=== PATIENT | female | born 1970 | race Caucasian/White ===

== ENCOUNTER → 2016-11-11 | Outpatient (CLI) | payer BC ==
[~2016-11-11] MED LIST: CIPR-255 PO; HYDR-5688 PO; THY/30 PO
== END | disposition home or self-care (01) ==
LOC: C.LAB 15:07
PROVIDERS: ATTEND Nurse Practitioner Family
DX: N39.0 Urinary tract infection, site not specified (principal)

== ENCOUNTER 2016-12-02 06:25 | Inpatient (IN) | payer BC ==
[2016-12-02] VITALS (9 sets, daily range): BP systolic 119–170; BP diastolic 69–100; PULSE 49–75; TEMP 36.4–36.8; O2SAT 92–99; Ht 175.3 cm; Wt 102.2 kg
[~2016-12-02] VITALS: Ht 175.3 cm; Wt 102.2 kg
[~2016-12-02 06:25] MED LIST changes: -CIPR-255 PO; -HYDR-5688 PO
[2016-12-02] MEDS ORDERED: SODIUM CHLORIDE 0.9% 1000ML 500 ML IV STA (06:41)
[2016-12-02] MEDS ORDERED: ASPIRIN 81 MG CHEW PO STA (06:45)
[2016-12-02] MEDS ORDERED: ONDANSETRON INJ 2 MG/ML 2 ML VIAL IV STA (06:45)
[2016-12-02] MEDS ORDERED: MoRPHine SULFATE 4 MG/ML 1 ML CARP\\VIAL IV STA (06:46)
[2016-12-02] MEDS ORDERED: NiCARDipine HCL INJ 2.5 MG/ML 10 ML AMP ONE (06:47)
[2016-12-02] MEDS ORDERED: HEPARIN SOD (PORCINE) 1000 UNIT/ML 10 ML VIAL ONE (06:47)
[2016-12-02] MEDS ORDERED: FENTANYL CITRATE INJ 50 MCG/1 ML 2 ML VIAL ONE ×3 (06:47→13:02)
[2016-12-02] MEDS ORDERED: MIDAZOLAM HCL 1 MG/ML 2ML VIAL ONE ×2 (06:48→13:01)
[2016-12-02] MEDS: NITROGLYCERIN 0.4 MG SL PER TAB CHARGE SL PRN ×2 (06:50→07:02)
--- NOTE | 2016-12-02 06:50 | EMERGENCY ROOM VISIT NOTE ---
History Report prepared by Leonel: Kenia Nance Under the Supervision of: Dr. Marc Gomes M.D. First contact with patient: 06:36 Chief Complaint: CHEST PAIN Stated Complaint: CHEST PAIN History of Present Illness The patient is a 46 year old female who presents to the Emergency Room with complaints of persistent central chest pain that began around 0200 this morning. She currently rates her discomfort as a 9/10 in severity. The patient states that recently when she wakes up in the morning she would notice intermittent chest pain that would last 3-5 hours. She states that she thought that it was heart burn. The patient states that she has been taking antacids to alleviate her discomfort. She states her chest pain has been present since 0200 and notes that it is much worse than before. The patient states that nothing has been making it better this morning. She denies her pain being exertional. The patient states that with her pain today she has been experiencing diaphoresis and nausea. She states that she did vomit this morning. The patient additionally reports upper abdominal pain. The patient states that she is a smoker. She denies any pain radiating into her shoulder. The patient denies any history of lung or heart diseases. She states that she had a normal stress test 2-3 years ago. Source of History: patient Onset: 0200 this morning Position: chest (persistent) Symptom Intensity: 9/10 Timing: other (persistent) Associated Symptoms: + diaphoresis, + nausea, + vomiting, + abdominal pain Review of Systems See HPI for pertinent positives & negatives. A total of 10 systems reviewed and were otherwise negative. Past Medical & Surgical Medical Problems: (1) Hydronephrosis (2) Hypothyroidism Nos (3) Thyroid Dysfunc-Deliver (4) Urin Tract Infection Nos Family History FHx: heart disease Social History Smoking Status: Current Every Day Smoker Alcohol Use: occasionally Marital Status: Housing Status: lives with family Current/Historical Medications Scheduled Ciprofloxacin Hcl (Cipro), 1 TAB PO BID Thyroid ([place] Thyroid), 60 MG PO BID Scheduled PRN Hydrocodone/Acetaminophen 5MG/325MG ([place] 5MG/325MG), 1-2 TABLET PO q 6 hrs PRN for Pain Allergies Coded Allergies: Adhesives (Verified Allergy, Intermediate, took off skin, 12/02/16) Latex1 -Allergic Contact Dermititis (Verified Allergy, Unknown, "takes skin off", 12/02/16) Physical Exam Vital Signs Date Time Temp Pulse Resp B/P (MAP) Pulse Ox O2 Delivery O2 Flow Rate FiO2 12/02/16 09:00 84 16 174/82 98 Room Air 12/02/16 08:21 49 18 178/67 99 Room Air 12/02/16 07:42 46 16 151/70 96 12/02/16 07:41 46 15 96 12/02/16 07:36 49 18 129/70 98 12/02/16 07:31 59 14 127/66 12/02/16 07:26 47 16 149/62 100 12/02/16 07:21 153/62 12/02/16 07:18 46 14 99 12/02/16 07:16 159/77 12/02/16 07:13 48 17 158/76 99 Room Air 12/02/16 07:13 51 15 99 12/02/16 07:06 52 16 135/81 100 12/02/16 07:01 50 21 173/81 100 12/02/16 06:55 51 19 160/79 100 12/02/16 06:52 58 16 157/85 100 Room Air 12/02/16 06:48 50 12/02/16 06:46 77 16 173/113 12/02/16 06:40 100 Room Air 12/02/16 06:40 100 Room Air 12/02/16 06:27 36.5 53 24 176/91 100 Room Air Physical Exam GENERAL: Patient is in moderate distress secondary to pain. HEENT: No acute trauma, normocephalic atraumatic, mucous membranes moist, no nasal congestion, no scleral icterus. NECK: No stridor, no adenopathy, no meningismus, trachea is midline. LUNGS: Clear to auscultation bilaterally, no wheeze, no rhonchi, breath sounds equal. HEART: Bradycardic with a regular rhythm, no murmurs. ABDOMEN: Soft, tender in both upper quadrants mostly the RUQ, bowel sounds positive, no hernias, no peritonitis. EXTREMITIES: No cyanosis or edema, full range of motion of all the joints without pain or difficulty, no signs for acute trauma. NEUROLOGIC: Oriented x 3, no acute motor or sensory deficits, no focal weakness. SKIN: No rash, no jaundice, no diaphoresis. Medical Decision & Procedures ER Provider Diagnostic Interpretation: Radiology results as stated below per my review and radiologist interpretation: CHEST ONE VIEW PORTABLE HISTORY: Atypical CHEST PAIN COMPARISON: Chest 07/09/2014. FINDINGS: The lungs are clear. Cardiac silhouette is normal in size. No pleural effusions. No pneumothorax. IMPRESSION: No acute process. Electronically signed by: Dav Soliz M.D. 12/02/2016 7:16 AM Dictated Date/Time: 12/02/2016 7:16 AM ABDOMINAL ULTRASOUND, RIGHT UPPER QUADRANT HISTORY: Right upper quadrant pain and vomiting. COMPARISON: None. FINDINGS: Liver morphology is normal. Hepatic echogenicity is mildly increased. No hepatic lesions are identified. The common bile duct measures 6 mm in caliber. Note is made of a nonmobile stone within the gallbladder neck which measures approximately 1.6 cm. The gallbladder is mildly distended. There is trace pericholecystic fluid and a sonographic Schreiber sign was reported by the technologist. Mild gallbladder wall thickening is noted. The wall measures 4 mm in thickness. The pancreatic body is normal. The head and tail are obscured by overlying bowel gas. There is no right hydronephrosis. IMPRESSION: 1. Cholelithiasis, mild gallbladder wall thickening, trace pericholecystic fluid and sonographic Schreiber sign. The findings suggest acute cholecystitis. 2. No biliary ductal dilatation. 3. Suspected fatty infiltration of the liver. Electronically signed by: Gentry Ruiz M.D. 12/02/2016 8:55 AM Dictated Date/Time: 12/02/2016 8:52 AM Laboratory Results 12/02/16 06:32 12/02/16 06:32 Test 12/02/16 06:32 12/02/16 06:45 12/02/16 06:49 Red Blood Count 4.86 M/uL (4.2-5.4) Mean Corpuscular Volume 91.2 fL (80-100) Mean Corpuscular Hemoglobin 32.1 pg (25-34) Mean Corpuscular Hemoglobin Concent 35.2 g/dl (32-36) RDW Standard Deviation 41.0 fL (36.4-46.3) RDW Coefficient of Variation 12.3 % (11.5-14.5) Mean Platelet Volume 10.5 fL (7.4-10.4) Prothrombin Time 9.7 SECONDS (9.0-12.0) Prothromb Time International Ratio 0.9 (0.9-1.1) Activated Partial Thromboplast Time 26.1 SECONDS (21.0-31.0) Partial Thromboplastin Ratio 1.0 Est Creatinine Clear Calc Drug Dose 116.2 ml/min Estimated GFR () 107.3 Estimated GFR (Non- 92.6 BUN/Creatinine Ratio 21.0 (10-20) Calcium Level 9.6 mg/dl (8.5-10.1) Total Bilirubin 0.5 mg/dl (0.2-1) Aspartate Amino Transf (AST/SGOT) 22 U/L (15-37) Alanine Aminotransferase (ALT/SGPT) 47 U/L (12-78) Alkaline Phosphatase 85 U/L (45-117) Total Creatine Kinase 59 U/L (26-192) Creatine Kinase MB 0.8 ng/ml (0.5-3.6) Creatine Kinase MB Ratio 1.4 (0-3.0) Total Protein 8.2 gm/dl (6.4-8.2) Albumin 4.1 gm/dl (3.4-5.0) Globulin 4.1 gm/dl (2.5-4.0) Albumin/Globulin Ratio 1.0 (0.9-2) Lipase 130 U/L (73-393) Bedside Troponin I < 0.030 ng/ml (0-0.045) Bedside Hemoglobin 14.6 g/dl (12.0-16.0) Bedside Hematocrit 43 % (37-47) Bedside Sodium 136 mEq/L (135-144) Bedside Potassium 6.6 mEq/L (3.3-5.0) Bedside Chloride 106 mEq/L (101-112) Bedside Total CO2 26 mEq/l (24-31) Anion Gap 12.0 mmol/L (16-25) Bedside Blood Urea Nitrogen 24 mg/dl (7-18) Bedside Creatinine 0.7 mg/dl (0.6-1.3) Bedside Glucose (other) 132 mg/dl (70-99) Bedside Ionized Calcium ([place]) 0.97 mmol/l (1.12-1.32) Laboratory results reviewed by me. Medications Administered Medications (Trade) Dose Ordered Sig/Vidhya Route Start Time Stop Time Status Last Admin Dose Admin Sodium Chloride 500 ml @ 999 mls/hr Q31M STAT IV 12/02/16 06:41 12/02/16 07:11 DC 12/02/16 06:52 999 MLS/HR Nitroglycerin (Nitrostat Tab) 0.4 mg Q5M PRN SL 12/02/16 06:45 12/02/16 12:10 DC 12/02/16 07:02 0.4 MG Aspirin (Aspirin Chew) 324 mg NOW STAT PO 12/02/16 06:45 12/02/16 06:46 DC 12/02/16 06:54 324 MG Ondansetron HCl (Zofran Inj) 4 mg NOW STAT IV 12/02/16 06:45 12/02/16 06:46 DC 12/02/16 06:54 4 MG Morphine Sulfate (MoRPHine SULFATE INJ) 4 mg NOW STAT IV 12/02/16 06:46 12/02/16 06:47 DC 12/02/16 06:53 4 MG Miscellaneous Information (Nursing Verbal Med Order) 1 ea ONE ONCE N/A 12/02/16 07:15 12/02/16 07:16 DC 12/02/16 07:13 1 EA Morphine Sulfate (MoRPHine SULFATE INJ) 4 mg Q15M PRN IV 12/02/16 07:30 12/02/16 12:11 DC 12/02/16 10:55 4 MG Miscellaneous Information (Nursing Verbal Med Order) 1 ea ONE ONCE N/A 12/02/16 07:30 12/02/16 07:31 DC 12/02/16 07:28 1 EA Piperacillin Sod/ Tazobactam Sod (Zosyn Iv) 4.5 gm NOW STAT IV 12/02/16 09:00 12/02/16 09:01 DC 12/02/16 09:27 4.5 GM ECG Indication: chest pain Rate (beats per minute): 50 Rhythm: sinus bradycardia Findings: ST elevation (Anterior), no ectopy Comparison ECG Date: 07/09/2014 Change: When compared to EKG done on 07/09/14, Anterior ST elevations are new. Repeat EKG shows sinus bradycardia 50, ST elevations in anterior leads have resolved, no ectopy. ED Course 0639: The patient was evaluated in room B12B. A complete history and physical exam was performed. 0641: Ordered Sodium Chloride 500 ml @ 999 mls/hr IV. 0643: A code heart alert was initiated. 0645: Ordered Zofran Inj 4 mg IV, Aspirin 324 mg PO, Nitroglycerin 0.4 mg SL. 0646: Ordered Morphine Sulfate 4 mg IV. 0650: I reevaluated the patient and she is resting. 0657: Nursing staff for the cardiac catheterization lab have arrived at the patients bedside. 0700: I reevaluated the patient and the patient states that she feels somewhat better, but still reports pain. 0702: Dr. Hartman, Interventional Cardiology arrived at the patient's bedside. I updated him on the patient's case. 0710: I spoke to Dr. Hartman and he would like the patient to have an echocardiogram in the department and if there are no changes, he does not want to take the patient to [facility] immediately. 0720: Per Dr. Hartman, the patients echo appeared normal. 0724: Dr. Hartman notes that the leads were placed improperly, which could account for the abnormal ST elevations. 0726: I reevaluated the patient and she is feeling improved. The patient notes that the morphine was most helpful. 0730: Ordered Morphine Sulfate 4 mg IV. 0900: Ordered Zosyn IV 4.5 gm IV. 0903: I reevaluated the patient and she is resting comfortably. I discussed the exam findings with her and I discussed the treatment plan. She verbalized complete understanding and agreement. She is going to be evaluated for further treatment. 0904: I discussed the patients case with Dr. Gutiérrez, General Surgery. He is going to come down to see the patient. Medical Decision The patient is a 46 year old female who presents to the ED with complaints of chest pain. Differential diagnoses considered include VT, angina, aortic dissection, PE, gastritis, pancreatitis, gallbladder disease, anemia, electrolyte imbalance, musculoskeletal pain. There is a mild leukocytosis, this could be consistent with infection or her pain. No concerning anemia. No significant electrolyte abnormality-her initial rapid potassium value was elevated but I believe likely hemolyzed as the redraw showed a normal value. No kidney failure, hepatitis or pancreatitis. EKG initially showed a sinus bradycardia with ST elevation in the anterior leads. This was concerning for acute cardiac ischemia. Cardiac enzyme testing times one did not suggest acute cardiac injury. Chest film showed no mediastinal widening, pneumonia or pneumothorax. There was no coagulopathy. The patient received oral aspirin. She was given sublingual nitros with minimal relief of pain. She received IV Zofran nausea, IV morphine for pain. She was given IV saline. Given the EKG findings and her complaints, a heart alert was called. She was seen by cardiology and it was felt that this was likely a non-cardiac presentation. A repeat EKG was done during her stay and the ST elevations had normalized. The patient was sent for a gallbladder ultrasound, this showed acute cholecystitis. She was given IV Zosyn as antibiotic coverage. I did speak with the on-call surgeon. The patient was evaluated. She does require a hospital stay and gallbladder surgery. It appears her presentation today is consistent with acute cholecystitis, not acute cardiac ischemia. The patient is feeling improved since her treatment here in the emergency room. Medication Reconcilliation Current Medication List: was personally reviewed by me Consults Time Called: 901 Consulting Physician: Dr. Gutiérrez, General Surgery Returned Call: 903 I discussed the patients case with Dr. Gutiérrez, General Surgery. He is going to come down to see the patient. Impression Primary Impression: Acute cholecystitis Additional Impressions: Precordial chest pain Abnormal EKG Critical Care I have personally spent greater than 36 minutes of critical care time in the direct management of this patient. This includes bedside care, interpretation of diagnostic studies, and testing, discussion with consultants, patient, and family members, and other required patient management activities. This 36 minutes is in excess of all separately billable procedures. Scribe Attestation The scribe's documentation has been prepared under my direction and personally reviewed by me in its entirety. I confirm that the note above accurately reflects all work, treatment, procedures, and medical decision making performed by me. Departure Information Dispostion Being Evaluated By Surgeon Prescriptions Ciprofloxacin Hcl (CIPRO) 500 Mg Tab 1 TAB PO BID for 7 Days, #14 TAB Prov: Corey Gutiérrez M.D. 12/02/16 Hydrocodone/Acetaminophen 5MG/325MG ([place] 5MG/325MG) Tab 1-2 TABLET PO q 6 hrs Y for Pain, #40 TAB PRN PAIN Prov: Corey Gutiérrez M.D. 12/02/16 Referrals Javon Lunsford M.D. (PCP) Problem Qualifiers
[2016-12-02] MEDS ORDERED: NITROGLYCERIN/D5W 100MCG/ML 20ML SYR ONE (06:51)
[2016-12-02 06:54] LABS: HEMATOCRIT 44.3 % (37-47); MEAN CELL VOLUME 91.2 fL (80-100); MEAN CORPUSCULAR HEMOGLOBIN 32.1 pg (25-34); MEAN CORPUSCULAR HGB CONC 35.2 g/dl (32-36); MEAN PLATELET VOLUME 10.5 fL (7.4-10.4); PLATELET COUNT 267 K/uL (130-400); RED BLOOD COUNT 4.86 M/uL (4.2-5.4); WHITE BLOOD COUNT 13.03 K/uL (4.8-10.8)
[2016-12-02 07:02] LABS: ISTAT CREATININE 0.7 mg/dl (0.6-1.3); ISTAT HEMOGLOBIN 14.6 g/dl (12.0-16.0); ISTAT IONIZED CALCIUM 0.97 mmol/l (1.12-1.32)
[2016-12-02 07:06] LABS: INR 0.9 (0.9-1.1); PROTHROMBIN TIME (PATIENT) 9.7 SECONDS (9.0-12.0)
[2016-12-02 07:11] LABS: CALCIUM 9.6 mg/dl (8.5-10.1); CREATININE 0.77 mg/dl (0.60-1.20); POTASSIUM 3.7 mmol/L (3.5-5.1)
[2016-12-02] MEDS ORDERED: NURSING VERBAL MED ORDER ONE ×2 (07:15→07:30)
[2016-12-02 07:16] LABS: CKMB/CK RATIO 1.4 (0-3.0)
--- NOTE | 2016-12-02 07:17 | DIAGNOSTIC IMAGING REPORT ---
CHEST ONE VIEW PORTABLE HISTORY: Atypical CHEST PAIN COMPARISON: Chest 07/09/2014. FINDINGS: The lungs are clear. Cardiac silhouette is normal in size. No pleural effusions. No pneumothorax. IMPRESSION: No acute process. Electronically signed by: Dav Soliz M.D. 12/02/2016 7:16 AM Dictated Date/Time: 12/02/2016 7:16 AM
[2016-12-02] MEDS: MoRPHine SULFATE 4 MG/ML 1 ML CARP\\VIAL IV PRN ×3 (07:47→10:55)
--- NOTE | 2016-12-02 08:52 | CARDIOLOGY CONSULTATION ---
DATE OF CONSULTATION: 12/02/2016 REFERRING PHYSICIAN: Marc Gomes MD CONSULTATION: Joshua Hartman Jr, MD PRIMARY PHYSICIAN: Javon Lunsford MD HISTORY OF PRESENT ILLNESS: The patient is a 46-year-old white female. No history of heart disease. No history of hypertension, diabetes mellitus, or dyslipidemia. She does smoke cigarettes. Family history of premature coronary artery disease in her father. Several days ago, she had an episode of sharp epigastric upper abdominal pain that lasted a few hours. She thought it was reflux. She has a history of GE reflux. There is no exertional component to it. It subsequently resolved. She presented to the Emergency Department this morning with a 4-5 hour complaint of constant sharp epigastric and right upper quadrant pain. Worse with deep inspiration. No increase in the intensity with exertion. The discomfort did radiate into her mid scapular region. She had nausea and vomiting prior to arrival to the Emergency Department. She also complains of dyspnea and some mild diaphoresis. In the Emergency Department, she was given sublingual nitroglycerin. This had no effect on the pain. She has received 3 doses of intravenous morphine 4 mg. This has decreased the intensity of pain. However, it still persists. She denies any fevers or chills. The patient states that she has had similar type discomfort, but not as intense in the past. She thinks there may be association with it occurring after meals. She denies any exertionally precipitated chest pain. Recently, she has had normal exercise tolerance. With strenuous activity, she has no anginal type symptoms. On arrival to the Emergency Department, she had an electrocardiogram performed. This revealed sinus bradycardia at a rate of 50 beats per minute. There were ST segment elevations noted in V1-V3. A repeat electrocardiogram was performed approximately 30 minutes later and no ST segment elevations were noted. Based on initial electrocardiogram and the complaints of chest pain, a heart alert was called. I evaluated the patient in the Emergency Department. The above history obtained. She was found on exam by Emergency Department physician to have epigastric and right upper quadrant tenderness. At the time of my exam, she had similar tenderness. A point of care troponin I returned at normal value of less than 0.030. Her total bilirubin is 0.5. AST and ALT are normal. Alkaline phosphatase was normal. CK total was 59 with an MB of 0.8. A bedside emergency echocardiogram was performed. This was reviewed by me at the bedside. It shows normal LV systolic function and wall motion. There is trace to mild tricuspid regurgitation. No evidence of valvular stenosis. No pericardial effusion. Normal estimated central venous pressure based on the appearance of the inferior vena cava. Because of the negative troponin I, normal LV wall motion, and resolution of ST changes on electrocardiogram with repositioning of the ECG leads, it was felt that the patient was not likely experiencing any acute coronary syndrome. It is felt that the patient may be experiencing an acute GI issue such as acute cholecystitis. The patient states that the discomfort was similar, but much less intense than her prior episodes of GE reflux. At home, she had used antacids. These had minimal effect on alleviating the pain. PAST MEDICAL HISTORY: 1. Hypothyroidism. 2. History of hydronephrosis. PAST SURGICAL HISTORY: 1. Status post hysterectomy. Ovaries in place. 2. Status post abdominoplasty surgery. MEDICATIONS AT TIME OF ADMISSION: Included [place] Thyroid 60 mg b.i.d. She also uses [id number] antacids. ALLERGIES: No known drug allergies. FAMILY HISTORY: History of coronary artery disease in her father. He from myocardial infarction in his mid 50s. Her mother is alive and well. She is actually in attendance with her in the Emergency Department. She has no history of heart disease. SOCIAL HISTORY: The patient is . She smokes cigarettes. Currently, smoking 6-7 cigarettes a day. Occasional use of alcohol. She has 3 sons. Age ranges 14-24. REVIEW OF SYSTEMS: 1. As above. 2. No orthopnea or PND. 3. No urinary complaints. 4. No pulmonary complaints other than current complaint of inability to take a deep breath secondary to exacerbating her abdominal epigastric pain. 5. No cerebrovascular or peripheral vascular complaints. 6. No HEENT complaints. PHYSICAL EXAMINATION: GENERAL: The patient is lying in bed. She appears to be in moderate distress secondary to pain. VITAL SIGNS: With pulse 46, blood pressure 151/70, and pulse oximetry 96%. Oral temperature was 36.5. HEAD: Normal. EYES: Pupils equal and round. Anicteric. Conjunctivae normal. NECK: No jugular venous distension. Carotids 2/2 bilaterally. Normal upstroke. No bruits. LUNGS: Normal respiratory effort. Clear. No rales or wheezes. HEART: Regular rhythm. Decreased rate. S1 and S2 normal. No S3 or S4. No murmur or rub. ABDOMEN: Marked epigastric and right upper quadrant tenderness. This exacerbates her pain in these areas. No bruits. Normal bowel sounds. No palpable masses or organomegaly. EXTREMITIES: No pretibial edema. No cyanosis or clubbing. PULSES: Distal pulses strongly palpable. NEUROLOGICAL: Alert and oriented x3. Motor grossly intact. PSYCHIATRIC: Affect is normal. DATA: Initial electrocardiogram performed at 06:31 a.m. today with sinus bradycardia at a rate of [address] elevations in V1-V3. Repeat electrocardiogram with resolution of the ST segment elevations. Chest x-ray reviewed by me. No evidence of congestive heart failure. No infiltrate. Normal heart size. Echocardiogram performed at the bedside and reviewed by me shows normal chamber dimensions. Normal biventricular systolic function. Normal left ventricular wall motion and ejection fraction. Trace to mild tricuspid regurgitation. Normal estimated central venous pressure. LABORATORY DATA: Sodium 140, potassium 3.7, chloride 105, carbon dioxide 25, BUN 16, creatinine 0.77 and random glucose 129. AST 22 and ALT 47. Total bilirubin 0.5. CK total 59 with MB of 0.8. Troponin I less than 0.030. Albumin 4.1. INR 0.9. PTT 26.1. CBC with WBC 13.03, hemoglobin 15.6, hematocrit 44.3, and platelet count 267. ASSESSMENT: 1. Prolonged epigastric and right upper quadrant pain. Initial troponin I negative. If the discomfort was secondary to myocardial ischemia/injury, would expect elevation in troponin I by now. Her echocardiogram performed during the complaint of severe pain shows normal LV wall motion. This would also go against any significant myocardial ischemia or injury. Initial electrocardiogram was abnormal. However, there was a report that the leads may have been in properly placed. A repeat electrocardiogram with proper lead placement showed resolution of the ST segment elevations. The patient does have coronary artery disease risk factors including cigarette smoking and family history of premature coronary artery disease. However, prior to admission, no exertionally precipitated symptoms suggestive of angina. 2. Elevated white blood count. This could be secondary to an underlying infectious process such as acute cholecystitis. However, she is afebrile. The white blood cell count elevation could be secondary to acute stress. 3. Sinus bradycardia. This may be secondary to increased vagal tone secondary to her pain. Her blood pressure is good. On exam and echocardiogram, she appears to be euvolemic. Her IVC on echo indicates normal central venous pressure. 4. No evidence of heart failure on chest x-ray or exam. RECOMMENDATIONS: 1. The patient was given morphine for pain relief. Analgesics as necessary. 2. Assess for a GI etiology to her symptoms. She has been ordered to undergo an abdominal ultrasound. 3. At this time, no further cardiac workup or evaluation. 4. In the event that the patient required urgent or emergent GI surgery, she is at an acceptable cardiac risk. As stated above, I do not feel that she is having an acute coronary process at this time. 5. Intravenous fluids. 6. No specific treatment for her bradycardia at this time. Her blood pressure is good. Certainly if she had hypotension and bradycardia, atropine and boluses of IV fluids would be indicated. Thank you for asking me to see this patient in cardiology consultation. The above assessment was discussed with Dr. Gomes, the ED nursing staff, and the patient by me.
--- NOTE | 2016-12-02 08:56 | DIAGNOSTIC IMAGING REPORT ---
ABDOMINAL ULTRASOUND, RIGHT UPPER QUADRANT HISTORY: Right upper quadrant pain and vomiting. COMPARISON: None. FINDINGS: Liver morphology is normal. Hepatic echogenicity is mildly increased. No hepatic lesions are identified. The common bile duct measures 6 mm in caliber. Note is made of a nonmobile stone within the gallbladder neck which measures approximately 1.6 cm. The gallbladder is mildly distended. There is trace pericholecystic fluid and a sonographic Schreiber sign was reported by the technologist. Mild gallbladder wall thickening is noted. The wall measures 4 mm in thickness. The pancreatic body is normal. The head and tail are obscured by overlying bowel gas. There is no right hydronephrosis. IMPRESSION: 1. Cholelithiasis, mild gallbladder wall thickening, trace pericholecystic fluid and sonographic Schreiber sign. The findings suggest acute cholecystitis. 2. No biliary ductal dilatation. 3. Suspected fatty infiltration of the liver. Electronically signed by: Gentry Ruiz M.D. 12/02/2016 8:55 AM Dictated Date/Time: 12/02/2016 8:52 AM
[2016-12-02] MEDS ORDERED: PIPERACILLIN/TAZOBACTAM 4.5 GM/100ML D5W IV STA (09:00)
--- NOTE | 2016-12-02 09:32 | History and Physical ---
History & Physical Date Dec 02, 2016. Chief Complaint chest/abd pain History of Present Illness The patient is a 46 year old female with complaints of chest and abd pain- initiall r/o for cardiac event by Dr Hartman. Then found with evidence of acute cholecystitis and stone in neck of gallbladder.- for lap zach Past Medical/Surgical History Medical Problems: (1) Hydronephrosis (2) Hypothyroidism Nos (3) Thyroid Dysfunc-Deliver (4) Urin Tract Infection Nos Additional History Hepatic Disease: No Endocrine Disorder: No Kidney Disease: No Hypertension: No Heart Disease: No Allergies Coded Allergies: Adhesives (Verified Allergy, Intermediate, took off skin, 12/02/16) Home Medications Scheduled Thyroid ([place] Thyroid), 60 MG PO BID Physical Examination Skin: warm/dry Eyes: sclerae normal Head: atraumatic Neck: supple Respiratory/Chest: no respiratory distress Cardiovascular: regular rate, rhythm Abdomen / GI: + pertinent finding (RUQ tenderness) Neurologic/Psych: alert Diagnosis acute cholecystitis Plan of Treatment for lap zach today. admit, IV atbx, medical follow postop.
[2016-12-02] MEDS ORDERED: HYDROmorphone INJ 1 MG/ML SYR IV PRN ×2 (09:45→13:00)
[2016-12-02] MEDS ORDERED: LACTATED RINGER'S 1000ML 1,000 ML IV SCH (09:45)
[2016-12-02] MEDS ORDERED: PROMETHAZINE HCL INJ 25 MG in SODIUM CHLORIDE 0.9% 50ML 50 ML IV PRN (09:45)
[2016-12-02] MEDS ORDERED: HYDROmorphone INJ 0.5 MG/0.5 ML SYR IV PRN (09:45)
[2016-12-02] MEDS ORDERED: ONDANSETRON INJ 2 MG/ML 2 ML VIAL IV PRN ×2 (09:45→13:00)
[2016-12-02] MEDS ORDERED: PIPERACILL/TAZOBAC CONSULT ACTIVE PRN (12:15)
[2016-12-02] MEDS ORDERED: ATROPINE SULFATE 0.1 MG/ML 5ML SYR IV PRN (13:00)
[2016-12-02] MEDS ORDERED: FENTANYL CITRATE INJ 50 MCG/1 ML 2 ML VIAL IV PRN (13:00)
[2016-12-02] MEDS ORDERED: EpHEDrine SULFATE INJ 50 MG/ML AMP IV PRN (13:00)
[2016-12-02] MEDS ORDERED: PROPOFOL IV EMULSION 10 MG/ML 20 ML VIAL IV ONE (13:01)
[2016-12-02] MEDS ORDERED: LIDOCAINE HCL 2% 2 ML VIAL (20MG/ML) ONE (13:01)
[2016-12-02] MEDS ORDERED: DEXAMETHASONE SOD INJ 4 MG/ML VIAL ONE (13:01)
[2016-12-02] MEDS ORDERED: ONDANSETRON INJ 2 MG/ML 2 ML VIAL ONE ×4 (13:01→13:47)
[2016-12-02] MEDS ORDERED: BUPIVACAINE 0.5 % 5 MG/1 ML MPF 30ML VIAL ONE (13:20)
--- NOTE | 2016-12-02 13:26 | ECHOCARDIOGRAM REPORT ---
*NOTICE TO RECEIVING CONSTITUTION PARTY AGENCY This information is strictly Confidential and protected under [place] law. [place] law prohibits you from making any further disclosure of this information unless further disclosure is expressly permitted by the written consent of the person to whom it pertains or is authorized by law. A general authorization for the release of medical or other information is not sufficient for this purpose. Hospital accepts no responsibility if the information is made available to any other person, INCLUDING THE PATIENT. Interpretation Summary * Name: CARROL FATIMA Study Date: 12/02/2016 07:16 AM BP: 151/70 mmHg * Patient Location: ED HR: 46 * : 1970 (M/d/yyyy) Gender: Female Height: 69 in * Age: 46 yrs Ethnicity: CA Weight: 225 lb * Performed By: Kenia Encinas RDCS * * Reason For Study: CHEST PAIN * BSA: 2.2 m2 * Normal biventricular systolic function. * Normal left ventricular wall motion. * Borderline left atrial dilatation. * Trace tricuspid regurgitation. * Mildly elevated estimated right ventricular systolic pressure. Procedure Details * A complete two-dimensional transthoracic echocardiogram was performed (2D, M-mode, Doppler and color flow Doppler). Left Ventricle * The left ventricle is normal in size. * There is normal left ventricular wall thickness. * Ejection Fraction = 65-70%. * Left ventricular systolic function is normal. * The left ventricular wall motion is normal. Right Ventricle * The right ventricle is normal in size and function. Atria * The left atrium is borderline dilated. * Right atrial size is normal. * No ASD detected; PFO is not assessed. Mitral Valve * The mitral valve is normal. * There is no mitral valve stenosis. * There is no mitral regurgitation noted. Tricuspid Valve * The tricuspid valve is normal. * There is no tricuspid stenosis. * There is trace tricuspid regurgitation. * Right ventricular systolic pressure is elevated at 30-40mmHg. Aortic Valve * The aortic valve is trileaflet. * The aortic valve opens well. * Aortic stenosis is absent. * No aortic regurgitation is present. Pulmonic Valve * The pulmonic valve is not well visualized. * The pulmonary valve is inadequately visualized, but the Doppler data is adequate for interpretation. * There is no pulmonic valvular stenosis. * There is no pulmonic valvular regurgitation. Great Vessels * The aortic root is normal size. Pericardium/Pleural * There is no pericardial effusion. Great Vessels * Normal inferior vena cava diameter and respiratory variation suggests normal central venous pressure. MMode 2D Measurements and Calculations IVSd 1.0 cm IVSs 1.5 cm LVIDd 4.9 cm LVIDs 3.0 cm LVPWd 0.93 cm LVPWs 1.4 cm IVS/LVPW 1.1 FS 38.3 % EDV(Teich) 112.2 ml ESV(Teich) 35.5 ml EF(Teich) 68.4 % EDV(cubed) 116.8 ml ESV(cubed) 27.4 ml EF(cubed) 76.5 % % IVS thick 52.5 % % LVPW thick 47.1 % LV mass(C)d 167.5 grams LV mass(C)dI 77.2 grams/m\S\2 LV mass(C)s 149.9 grams LV mass(C)sI 69.0 grams/m\S\2 SV(Teich) 76.8 ml SI(Teich) 35.3 ml/m\S\2 SV(cubed) 89.4 ml SI(cubed) 41.2 ml/m\S\2 LA dimension 4.0 cm LVAd ap4 31.2 cm\S\2 LVLd ap4 8.1 cm EDV(MOD-sp4) 98.9 ml EDV(sp4-el) 101.7 ml LVAs ap4 16.8 cm\S\2 LVLs ap4 6.6 cm ESV(MOD-sp4) 40.0 ml ESV(sp4-el) 36.4 ml EF(MOD-sp4) 59.6 % EF(sp4-el) 64.2 % LVAd ap2 27.4 cm\S\2 LVLd ap2 7.7 cm EDV(MOD-sp2) 80.5 ml EDV(sp2-el) 82.7 ml LVAs ap2 14.4 cm\S\2 LVLs ap2 6.6 cm ESV(MOD-sp2) 26.8 ml ESV(sp2-el) 26.7 ml EF(MOD-sp2) 66.7 % EF(sp2-el) 67.7 % LVLd %diff -50 % EDV(MOD-bp) 92.2 ml LVLs %diff 0.55 % ESV(MOD-bp) 32.6 ml EF(MOD-bp) 64.6 % SV(MOD-sp4) 59.0 ml SI(MOD-sp4) 27.2 ml/m\S\2 SV(MOD-sp2) 53.7 ml SI(MOD-sp2) 24.7 ml/m\S\2 SV(MOD-bp) 59.6 ml SI(MOD-bp) 27.4 ml/m\S\2 SV(sp4-el) 65.3 ml SI(sp4-el) 30.0 ml/m\S\2 SV(sp2-el) 56.0 ml SI(sp2-el) 25.8 ml/m\S\2 Doppler Measurements and Calculations MV E max cain 84.7 cm/sec MV A max cain 67.9 cm/sec MV E/A 1.2 MV dec time 0.25 sec Ao V2 max 154.0 cm/sec Ao max PG 9.5 mmHg Ao max PG (full) 0.88 mmHg LV V1 max PG 8.6 mmHg LV V1 max 146.7 cm/sec TR max cain 276.4 cm/sec
[2016-12-02] MEDS ORDERED: ONDANSETRON INJ 2 MG/ML 2 ML VIAL IV ONE (14:00)
[2016-12-02] MEDS ORDERED: SUCCINYLCHOLINE 100MG/5ML SYR IV ONE (14:05)
--- NOTE | 2016-12-02 15:01 | [facility] Operative Report ---
Operative Report Operative Date Dec 02, 2016. Pre-Operative Diagnosis Acute Cholecystitis Post-Operative Diagnosis Acute Cholecystitis, chronic adhesions Procedure(s) Performed Laparoscopic Cholecystectomy Surgeon Dr. Gutiérrez Shovel Operator Surgeon(s) LUBA John Estimated Blood Loss 20mL Findings severe gb edema and chronic adhesions to the gallbladder Specimens A. Gallbladder Anesthesia gen Complication(s) None Disposition Recovery Room / PACU I attest to the content of the Intraoperative Record and any orders documented therein. Any exceptions are noted below.
[2016-12-02] MEDS ORDERED: HYDROCODONE/ACETAMOPHEN 5/325MG TAB PO PRN ×2 (15:15)
[2016-12-02] MEDS ORDERED: GLYCOPYRROLATE INJ 0.2 MG/ML VIAL ONE (15:16)
[2016-12-02] MEDS ORDERED: NEOSTIGMINE METHYLSULFATE 5 MG/5 ML SYR ONE (15:16)
--- NOTE | 2016-12-02 15:35 | OPERATIVE REPORT ---
DATE OF OPERATION: 12/02/2016 PREOPERATIVE DIAGNOSIS: Acute cholecystitis. POSTOPERATIVE DIAGNOSIS: Same with chronic adhesions. NAME OF OPERATION: Laparoscopic cholecystectomy. STAFF SURGEON: Dr. Gutiérrez. MOVIE STAR: Maite Jimenez PA-C. ANESTHESIA: General. OPERATION AND FINDINGS: PROCEDURE: The patient was brought in the operating room and placed on the operating table in supine position. Her abdomen was prepped and draped in usual fashion. 0.5% plain Marcaine was used to anesthetize all incisions. Incision was made above the umbilicus carrying dissection down to the fascia, placing a Veress needle producing pneumoperitoneum. I placed a 5 mm port initially and then an 11 mm port was placed. I did have slight difficulty because the patient did have adhesions of the omentum to the anterior abdominal wall. However, we were able to visualize the liver and gallbladder. Three 5 mm ports were placed, 1 cephalad and 2 laterally under visualization. Gallbladder was severely edematous and distended. It was aspirated of bile and then retracted. Dissection was carried out at the jeovanny hepatis. Again, there was severe edema in her soft tissues with fluid. The cystic duct was identified, clipped and transected. The cystic artery identified, clipped and transected, then the gallbladder dissected away from the liver bed in the usual fashion. It was then placed in an Endobag. It was very large. Using a 5 mm scope the Endobag was removed through the umbilical site. I did have to enlarge the fascial defect to remove the large gallbladder with stones. At this point, all ports were removed. The fascia at the umbilicus closed using interrupted 0 PDS suture, subcutaneous tissue reapproximated using 2-0 plain catgut suture then the skin reapproximated at the umbilicus using 5-0 Prolene suture. The other sites closed using subcuticular 4-0 Monocryl and Dermabond. The patient was transferred to recovery room in stable condition. I attest to the content of the Intraoperative Record and any orders documented therein. Any exception s are noted below.
[2016-12-02] MEDS ORDERED: CIPR-255 PO ×2 (15:39)
[2016-12-02] MEDS ORDERED: HYDR-5688 PO ×2 (15:39)
--- NOTE | 2016-12-02 15:40 | Anesthesiology Progress Note ---
Anesthesia Post Op Note Date & Time Dec 02, 2016 at 15:39 Vital Signs Pain Intensity: 0 Vital Signs Past 12 Hours Date Time Temp Pulse Resp B/P (MAP) Pulse Ox O2 Delivery O2 Flow Rate FiO2 12/02/16 15:35 60 18 140/78 100 Oxymask 3 12/02/16 15:25 36.0 66 18 128/78 100 Oxymask 5 12/02/16 15:19 36.0 65 18 136/76 100 Oxymask 5 12/02/16 12:50 99 Room Air 12/02/16 11:53 36.8 49 12 166/100 (122) 99 Room Air 52 170/70 (103) 12/02/16 11:28 54 20 159/76 98 12/02/16 11:00 93 18 153/77 97 Room Air 12/02/16 10:02 51 12/02/16 09:40 98 Room Air 12/02/16 09:00 84 16 174/82 98 Room Air 12/02/16 08:21 49 18 178/67 99 Room Air 12/02/16 07:42 46 16 151/70 96 12/02/16 07:41 46 15 96 12/02/16 07:36 49 18 129/70 98 12/02/16 07:31 59 14 127/66 12/02/16 07:26 47 16 149/62 100 12/02/16 07:21 153/62 12/02/16 07:18 46 14 99 12/02/16 07:16 159/77 12/02/16 07:13 48 17 158/76 99 Room Air 12/02/16 07:13 51 15 99 12/02/16 07:06 52 16 135/81 100 12/02/16 07:01 50 21 173/81 100 12/02/16 06:55 51 19 160/79 100 12/02/16 06:52 58 16 157/85 100 Room Air 12/02/16 06:48 50 12/02/16 06:46 77 16 173/113 12/02/16 06:40 100 Room Air 12/02/16 06:40 100 Room Air 12/02/16 06:27 36.5 53 24 176/91 100 Room Air Notes Mental Status: alert / awake / arousable, participated in evaluation Pt Amnestic to Procedure: Yes Nausea / Vomiting: adequately controlled Pain: adequately controlled Airway Patency, RR, SpO2: stable & adequate BP & HR: stable & adequate Hydration State: stable & adequate Anesthetic Complications: no major complications apparent
--- NOTE | 2016-12-02 15:49 | Discharge Instructions ---
Discharge Instructions Date of Service Dec 02, 2016. Admission Reason for Admission: Acute Cholecystitis Discharge Discharge Diagnosis / Problem: acute cholecystitis Discharge Goals Goal(s): Decrease discomfort, Improve function, Improve disease control Activity Recommendations Activity Limitations: as noted below Lifting Limitations: no more than 25 pounds (for 3 weeks) Exercise/Sports Limitations: until after follow-up appointment May Resume Sexual Activity: when tolerated Shower/Bathe: tomorrow Driving or Machine Use: resume 3 days after discharge SPECIAL CARE INSTRUCTIONS: * Cover incisions and change daily for comfort/drainage. * May leave incisions uncovered with dermabond * May use ibuprofen for pain as tolerated. * Expect some swelling and bruising. Call your doctor if: * Temperature above 101 degrees * Pain not relieved by pain medicine ordered * There is increased drainage or redness from any incision * You have any unanswered questions or concerns [phone]. FOLLOW UP VISIT: If not already scheduled, please call the office for a follow-up visit. for next week- some suture removal OFFICE PHONE NUMBER: Dr. Gutiérrez Office . Current Hospital Diet Patient's current hospital diet: Regular Diet Discharge Diet Recommended Diet: Regular Diet Procedures Procedures Performed: Laparoscopic Cholecystectomy Pending Studies Studies pending at discharge: no Work Instructions Return To Work: after follow-up (may need 2-3 weeks off work) Medical Emergencies . Who to Call and When: Medical Emergencies: If at any time you feel your situation is an emergency, please call 911 immediately. . Non-Emergent Contact Non-Emergency issues call your: Primary Care Provider, Surgeon . "Provider Documentation" section prepared by Corey Gutiérrez. . VTE Core Measure Inpt VTE Proph given/why not?: SCD's
[2016-12-02] MEDS: LACTATED RINGER'S 1000ML 1,000 ML IV SCH (16:26)
[2016-12-02] MEDS: PIPERACILL/TAZOBAC IV 3.375 GM in DEXTROSE 5% 100ML 100 ML IV SCH ×2 (16:26→23:44)
--- NOTE | 2016-12-02 18:45 | Medical Consult ---
Consultation Date of Consultation: Dec 02, 2016. Attending Physician: Corey Gutiérrez M.D. Reason for Consultation: Post-op medical management. History of Present Illness This is a 46yo F with a PMH of hypothyroidism, acid reflux and h/o hydronephrosis who presented to the ER this morning after 4-5 hours sharp RUQ pain. Has been experiencing this pain intermittently for the past few days but it became much more severe this morning. Describes pain as a 10/10 sharp RUQ pain with radiation to chest. States that it feels similar to previous bouts of acid reflux but with increased pain. Associated nausea and 3 episodes of vomiting and cold sweats. Initial EKG in ER showed St elevation in V1-V3 so heart alert was called. Per note by Dr. Hartman, a repeat EKG was performed 30 minutes later once leads had been repositioned and no ST segment elevations were noted. An emergent bedside echo was performed and it showed normal LV systolic function and wall motion. Troponin was negative. Based on these findings, it was determined that the patient was not likely experiencing ACS. At this point a CT abd/pelvis was performed and showed acute cholecystitis with mild GB wall thickening. A lap zach was performed by Dr. Gutiérrez. Patient is doing very well post-operatively. Denies any fever, chills, CP, SOB, abdominal pain, nausea, vomiting. Past Medical/Surgical History Medical Problems: (1) Abnormal EKG Status: Acute (2) Acute cholecystitis Status: Acute (3) Precordial chest pain Status: Acute Family History FHx: heart disease Social History Smoking Status: Current Every Day Smoker Marital Status: Housing Status: lives with family Allergies Coded Allergies: Adhesives (Verified Allergy, Intermediate, took off skin, 12/02/16) Latex1 -Allergic Contact Dermititis (Verified Allergy, Unknown, "takes skin off", 12/02/16) Current Inpatient Medications Current Inpatient Medications Medications (Trade) Dose Ordered Sig/Vidhya Route Start Time Stop Time Status Last Admin Dose Admin Hydromorphone HCl (Dilaudid Inj) 0.5 mg Q3H PRN IV 12/02/16 09:45 12/16/16 09:44 Hydromorphone HCl (Dilaudid Inj) 1 mg Q3H PRN IV 12/02/16 09:45 12/16/16 09:44 12/02/16 12:36 1 MG Piperacillin Sod/ Tazobactam Sod 3.375 gm/Dextrose 115 ml @ 28.75 mls/ hr Q8H IV 12/02/16 16:00 12/12/16 15:59 12/02/16 16:26 28.75 MLS/HR Ondansetron HCl (Zofran Inj) 4 mg Q6H PRN IV 12/02/16 09:45 01/01/17 09:44 Promethazine HCl 25 mg/Sodium Chloride 51 ml @ 204 mls/hr Q6H PRN IV 12/02/16 09:45 01/01/17 09:44 Piperacillin Sod/ Tazobactam Sod (Consult) 1 ea UD PRN N/A 12/02/16 12:15 01/01/17 12:14 Thyroid ([place] Thyroid Tab) 60 mg BID PO 12/02/16 21:00 01/01/17 20:59 Acetaminophen/ Hydrocodone Bitart ([place] 5/325 Tab) 1 tab Q4 PRN PO 12/02/16 15:15 12/16/16 15:14 Acetaminophen/ Hydrocodone Bitart ([place] 5/325 Tab) 2 tab Q4 PRN PO 12/02/16 15:15 12/16/16 15:14 Lactated Ringer's 1,000 ml @ 75 mls/hr [id number] IV 12/02/16 15:15 01/01/17 15:14 12/02/16 16:26 75 MLS/HR Physical Exam Date Time Temp Pulse Resp B/P (MAP) Pulse Ox O2 Delivery O2 Flow Rate FiO2 12/02/16 18:05 36.6 64 18 121/81 (94) 92 Room Air 12/02/16 17:05 36.7 60 17 122/76 (91) 93 Room Air 12/02/16 16:35 36.5 65 18 119/77 (91) 97 Nasal Cannula 2.0 12/02/16 16:07 94 Nasal Cannula 2.0 12/02/16 16:06 36.4 74 14 120/69 (86) 94 Nasal Cannula 2.0 12/02/16 15:55 71 18 134/74 100 Nasal Cannula 2 12/02/16 15:45 65 18 111/71 100 Nasal Cannula 2 12/02/16 15:35 60 18 140/78 100 Oxymask 3 12/02/16 15:25 36.0 66 18 128/78 100 Oxymask 5 12/02/16 15:19 36.0 65 18 136/76 100 Oxymask 5 12/02/16 12:50 99 Room Air 12/02/16 11:53 36.8 49 12 166/100 (122) 99 Room Air 52 170/70 (103) 12/02/16 11:28 54 20 159/76 98 12/02/16 11:00 93 18 153/77 97 Room Air 12/02/16 10:02 51 12/02/16 09:40 98 Room Air 12/02/16 09:00 84 16 174/82 98 Room Air 12/02/16 08:21 49 18 178/67 99 Room Air 12/02/16 07:42 46 16 151/70 96 12/02/16 07:41 46 15 96 12/02/16 07:36 49 18 129/70 98 12/02/16 07:31 59 14 127/66 12/02/16 07:26 47 16 149/62 100 12/02/16 07:21 153/62 12/02/16 07:18 46 14 99 12/02/16 07:16 159/77 12/02/16 07:13 48 17 158/76 99 Room Air 12/02/16 07:13 51 15 99 12/02/16 07:06 52 16 135/81 100 12/02/16 07:01 50 21 173/81 100 12/02/16 06:55 51 19 160/79 100 12/02/16 06:52 58 16 157/85 100 Room Air 12/02/16 06:48 50 12/02/16 06:46 77 16 173/113 12/02/16 06:40 100 Room Air 12/02/16 06:40 100 Room Air 12/02/16 06:27 36.5 53 24 176/91 100 Room Air General Appearance: no apparent distress Head: normocephalic, atraumatic Eyes: normal inspection, EOMI ENT: normal ENT inspection, hearing grossly normal, TMs normal, pharynx normal Neck: no JVD Respiratory/Chest: chest non-tender, lungs clear, normal breath sounds Cardiovascular: regular rate, rhythm, no edema, no gallop, no JVD, no murmur Abdomen/GI: normal bowel sounds, non tender, soft, + pertinent finding (post surgical incissons and abdomenal dressing) Back: normal inspection Extremities/Musculoskelatal: normal inspection (lower extremities in SCDs) Neurologic/Psych: no motor/sensory deficits, alert, normal mood/affect, oriented x 3 Skin: normal color, warm/dry Laboratory Results Last 24 Hours Test 12/02/16 06:32 12/02/16 06:45 12/02/16 06:49 12/02/16 13:23 White Blood Count 13.03 K/uL Red Blood Count 4.86 M/uL Hemoglobin 15.6 g/dL Hematocrit 44.3 % Mean Corpuscular Volume 91.2 fL Mean Corpuscular Hemoglobin 32.1 pg Mean Corpuscular Hemoglobin Concent 35.2 g/dl RDW Standard Deviation 41.0 fL RDW Coefficient of Variation 12.3 % Platelet Count 267 K/uL Mean Platelet Volume 10.5 fL Prothrombin Time 9.7 SECONDS Prothromb Time International Ratio 0.9 Activated Partial Thromboplast Time 26.1 SECONDS Partial Thromboplastin Ratio 1.0 Sodium Level 140 mmol/L Potassium Level 3.7 mmol/L 4.4 mmol/L Chloride Level 105 mmol/L Carbon Dioxide Level 25 mmol/L Anion Gap 10.0 mmol/L 12.0 mmol/L Blood Urea Nitrogen 16 mg/dl Creatinine 0.77 mg/dl Est Creatinine Clear Calc Drug Dose 116.2 ml/min Estimated GFR () 107.3 Estimated GFR (Non- 92.6 BUN/Creatinine Ratio 21.0 Random Glucose 129 mg/dl Calcium Level 9.6 mg/dl Total Bilirubin 0.5 mg/dl Aspartate Amino Transf (AST/SGOT) 22 U/L Alanine Aminotransferase (ALT/SGPT) 47 U/L Alkaline Phosphatase 85 U/L Total Creatine Kinase 59 U/L Creatine Kinase MB 0.8 ng/ml Creatine Kinase MB Ratio 1.4 Total Protein 8.2 gm/dl Albumin 4.1 gm/dl Globulin 4.1 gm/dl Albumin/Globulin Ratio 1.0 Lipase 130 U/L Bedside Troponin I < 0.030 ng/ml Bedside Hemoglobin 14.6 g/dl Bedside Hematocrit 43 % Bedside Sodium 136 mEq/L Bedside Potassium 6.6 mEq/L Bedside Chloride 106 mEq/L Bedside Total CO2 26 mEq/l Bedside Blood Urea Nitrogen 24 mg/dl Bedside Creatinine 0.7 mg/dl Bedside Glucose (other) 132 mg/dl Bedside Ionized Calcium ([place]) 0.97 mmol/l Assessment & Plan 46 year old Female s/p laparoscopic cholecystectomy examined at the bedside while eating dinner. No acute complaints on physical exam. Patient denies significant past medical history and does not take medications at home - no chest pain or shortness of breath - DVT prophylaxis - PT/OT and ambulation as tolerated - monitor for abdominal pain - monitor for urination and bowel movements - trend CBC post-op - discharge planning as per surgery service General medicine consult will follow with orthopedics Attending Addendum I have seen and examined the patient with LUBA Farooq. I agree with the assessment and plan Dr. Baldwin
[2016-12-02] MEDS: ARMOUR THYROID 30 MG TAB PO SCH (19:54)
[2016-12-03] VITALS (7 sets, daily range): BP systolic 112–115; BP diastolic 68–74; PULSE 61–85; TEMP 36.7–36.9; O2SAT 93–95
[2016-12-03] MEDS: LACTATED RINGER'S 1000ML 1,000 ML IV SCH (04:27)
[2016-12-03] MEDS ORDERED: IBUPROFEN 600 MG TAB PO PRN (05:30)
--- NOTE | 2016-12-03 05:45 | Surgery Progress Note ---
Surgery Progress Note Date of Service Dec 03, 2016. Subjective Post OP Day: 1 + feeling well much less pain- some pain she thinks is from CO2 gas Objective Vital Signs: Date Time Temp Pulse Resp B/P (MAP) Pulse Ox O2 Delivery O2 Flow Rate FiO2 12/03/16 04:00 36.8 67 18 112/68 (83) 93 Room Air 12/03/16 00:08 36.8 85 18 114/72 (86) 93 Room Air 12/02/16 23:50 Room Air 12/02/16 19:05 36.7 75 17 123/79 (94) 92 Room Air 12/02/16 19:00 Room Air 12/02/16 18:05 36.6 64 18 121/81 (94) 92 Room Air 12/02/16 17:05 36.7 60 17 122/76 (91) 93 Room Air 12/02/16 16:35 36.5 65 18 119/77 (91) 97 Nasal Cannula 2.0 12/02/16 16:07 94 Nasal Cannula 2.0 12/02/16 16:06 36.4 74 14 120/69 (86) 94 Nasal Cannula 2.0 12/02/16 15:55 71 18 134/74 100 Nasal Cannula 2 12/02/16 15:45 65 18 111/71 100 Nasal Cannula 2 12/02/16 15:35 60 18 140/78 100 Oxymask 3 12/02/16 15:25 36.0 66 18 128/78 100 Oxymask 5 12/02/16 15:19 36.0 65 18 136/76 100 Oxymask 5 12/02/16 12:50 99 Room Air 12/02/16 11:53 36.8 49 12 166/100 (122) 99 Room Air 52 170/70 (103) 12/02/16 11:28 54 20 159/76 98 12/02/16 11:00 93 18 153/77 97 Room Air 12/02/16 10:02 51 12/02/16 09:40 98 Room Air 12/02/16 09:00 84 16 174/82 98 Room Air 12/02/16 08:21 49 18 178/67 99 Room Air 12/02/16 07:42 46 16 151/70 96 12/02/16 07:41 46 15 96 12/02/16 07:36 49 18 129/70 98 12/02/16 07:31 59 14 127/66 12/02/16 07:26 47 16 149/62 100 12/02/16 07:21 153/62 12/02/16 07:18 46 14 99 12/02/16 07:16 159/77 12/02/16 07:13 48 17 158/76 99 Room Air 12/02/16 07:13 51 15 99 12/02/16 07:06 52 16 135/81 100 12/02/16 07:01 50 21 173/81 100 12/02/16 06:55 51 19 160/79 100 12/02/16 06:52 58 16 157/85 100 Room Air 12/02/16 06:48 50 12/02/16 06:46 77 16 173/113 12/02/16 06:40 100 Room Air 12/02/16 06:40 100 Room Air 12/02/16 06:27 36.5 53 24 176/91 100 Room Air General Appearance: no apparent distress Respiratory/Chest: no respiratory distress Abdomen: soft Laboratory Results: Results Past 24 Hours Test 12/02/16 06:32 12/02/16 06:45 12/02/16 06:49 12/02/16 13:23 Range/Units White Blood Count 13.03 4.8-10.8 K/uL Red Blood Count 4.86 4.2-5.4 M/uL Hemoglobin 15.6 12.0-16.0 g/dL Hematocrit 44.3 37-47 % Mean Corpuscular Volume 91.2 80-100 fL Mean Corpuscular Hemoglobin 32.1 25-34 pg Mean Corpuscular Hemoglobin Concent 35.2 32-36 g/dl RDW Standard Deviation 41.0 36.4-46.3 fL RDW Coefficient of Variation 12.3 11.5-14.5 % Platelet Count 267 130-400 K/uL Mean Platelet Volume 10.5 7.4-10.4 fL Prothrombin Time 9.7 9.0-12.0 SECONDS Prothromb Time International Ratio 0.9 0.9-1.1 Activated Partial Thromboplast Time 26.1 21.0-31.0 SECONDS Partial Thromboplastin Ratio 1.0 Sodium Level 140 136-145 mmol/L Potassium Level 3.7 4.4 3.5-5.1 mmol/L Chloride Level 105 98-107 mmol/L Carbon Dioxide Level 25 21-32 mmol/L Anion Gap 10.0 12.0 16-25 mmol/L Blood Urea Nitrogen 16 7-18 mg/dl Creatinine 0.77 0.60-1.20 mg/dl Est Creatinine Clear Calc Drug Dose 116.2 ml/min Estimated GFR () 107.3 Estimated GFR (Non- 92.6 BUN/Creatinine Ratio 21.0 10-20 Random Glucose 129 70-99 mg/dl Calcium Level 9.6 8.5-10.1 mg/dl Total Bilirubin 0.5 0.2-1 mg/dl Aspartate Amino Transf (AST/SGOT) 22 15-37 U/L Alanine Aminotransferase (ALT/SGPT) 47 12-78 U/L Alkaline Phosphatase 85 45-117 U/L Total Creatine Kinase 59 26-192 U/L Creatine Kinase MB 0.8 0.5-3.6 ng/ml Creatine Kinase MB Ratio 1.4 0-3.0 Total Protein 8.2 6.4-8.2 gm/dl Albumin 4.1 3.4-5.0 gm/dl Globulin 4.1 2.5-4.0 gm/dl Albumin/Globulin Ratio 1.0 0.9-2 Lipase 130 73-393 U/L Bedside Troponin I < 0.030 0-0.045 ng/ml Bedside Hemoglobin 14.6 12.0-16.0 g/dl Bedside Hematocrit 43 37-47 % Bedside Sodium 136 135-144 mEq/L Bedside Potassium 6.6 3.3-5.0 mEq/L Bedside Chloride 106 101-112 mEq/L Bedside Total CO2 26 24-31 mEq/l Bedside Blood Urea Nitrogen 24 7-18 mg/dl Bedside Creatinine 0.7 0.6-1.3 mg/dl Bedside Glucose (other) 132 70-99 mg/dl Bedside Ionized Calcium ([place]) 0.97 1.12-1.32 mmol/l Test 12/03/16 05:16 Range/Units Assessment & Plan 12/03/16- severe acute cholecystitis- cont IV atbx, add Senokot S and Milk of mag stop IV fluids, mobilize
[2016-12-03 05:55] LABS: HEMATOCRIT 42.4 % (37-47); MEAN CELL VOLUME 92.8 fL (80-100); MEAN CORPUSCULAR HEMOGLOBIN 30.4 pg (25-34); MEAN CORPUSCULAR HGB CONC 32.8 g/dl (32-36); MEAN PLATELET VOLUME 10.4 fL (7.4-10.4); PLATELET COUNT 265 K/uL (130-400); RED BLOOD COUNT 4.57 M/uL (4.2-5.4)
[2016-12-03 06:18] LABS: ALB/GLOB RATIO 0.9 (0.9-2); BUN/CREATININE RATIO 13.8 (10-20); CALCIUM 8.5 mg/dl (8.5-10.1); CREATININE 0.75 mg/dl (0.60-1.20); POTASSIUM 3.8 mmol/L (3.5-5.1)
[2016-12-03] MEDS: PIPERACILL/TAZOBAC IV 3.375 GM in DEXTROSE 5% 100ML 100 ML IV SCH ×3 (07:32→23:44)
[2016-12-03] MEDS: DOCUSATE SODIUM/SENNA 50/8.6MG TAB PO SCH ×2 (08:43→21:43)
[2016-12-03] MEDS: MAGNESIUM HYDROXIDE SUSP 30 ML UDC PO SCH ×2 (08:43→21:43)
[2016-12-03] MEDS: ARMOUR THYROID 30 MG TAB PO SCH ×2 (09:44→21:43)
--- NOTE | 2016-12-03 11:09 | Anesthesiology Progress Note ---
Anesthesia Post Op Note Date & Time Dec 03, 2016 at 11:08 Vital Signs Pain Intensity: 0.0 Vital Signs Past 12 Hours Date Time Temp Pulse Resp B/P (MAP) Pulse Ox O2 Delivery O2 Flow Rate FiO2 12/03/16 08:10 Room Air 12/03/16 07:23 18 12/03/16 06:58 36.9 79 20 113/74 (87) 95 Room Air 12/03/16 04:00 36.8 67 18 112/68 (83) 93 Room Air 12/03/16 00:08 36.8 85 18 114/72 (86) 93 Room Air 12/02/16 23:50 Room Air Notes Mental Status: alert / awake / arousable, participated in evaluation Pt Amnestic to Procedure: Yes Nausea / Vomiting: adequately controlled Pain: adequately controlled Airway Patency, RR, SpO2: stable & adequate BP & HR: stable & adequate Hydration State: stable & adequate Anesthetic Complications: no major complications apparent
--- NOTE | 2016-12-03 16:04 | Progress Note ---
Internal Med Progress Note Date of Service: Dec 03, 2016. Provider Documentation: SUBJECTIVE: patient seen and examined. denies acute abdominal pain. reports good appetite. denies chest pain no shortness of breath OBJECTIVE: General Appearance: no apparent distress Head: normocephalic, atraumatic Eyes: normal inspection, EOMI ENT: normal ENT inspection, hearing grossly normal, TMs normal, pharynx normal Neck: no JVD Respiratory/Chest: chest non-tender, lungs clear, normal breath sounds Cardiovascular: regular rate, rhythm, no edema, no gallop, no JVD, no murmur Abdomen/GI: normal bowel sounds, non tender, soft, post surgical incisions and abdominal dressing Back: normal inspection Extremities normal inspection Neurologic/Psych: no motor/sensory deficits, alert, normal mood/affect, oriented x 3 ASSESSMENT & PLAN: 46 year old Female s/p laparoscopic cholecystectomy on 12/02/16 - currently on Zosyn 3.375 grams IV q8 hours , patient is afebrile, however leukocytosis of 20, 000. unclear whether this is leukocytosis due to post- surgical stress/inflammation vs infection, would advise that blood cultures be drawn if patient develops fever - DVT prophylaxis on SCDs - PT/OT and ambulation as tolerated - discharge planning as per surgery service General medicine consult will follow with surgery service Vital Signs: Date Time Temp Pulse Resp B/P (MAP) Pulse Ox O2 Delivery O2 Flow Rate FiO2 12/03/16 15:00 36.7 73 20 115/72 (86) 95 Room Air 12/03/16 11:14 36.8 61 16 114/71 (85) 95 Room Air 12/03/16 08:10 Room Air 12/03/16 07:23 18 12/03/16 06:58 36.9 79 20 113/74 (87) 95 Room Air 12/03/16 04:00 36.8 67 18 112/68 (83) 93 Room Air 12/03/16 00:08 36.8 85 18 114/72 (86) 93 Room Air 12/02/16 23:50 Room Air 12/02/16 19:05 36.7 75 17 123/79 (94) 92 Room Air 12/02/16 19:00 Room Air 12/02/16 18:05 36.6 64 18 121/81 (94) 92 Room Air 12/02/16 17:05 36.7 60 17 122/76 (91) 93 Room Air 12/02/16 16:35 36.5 65 18 119/77 (91) 97 Nasal Cannula 2.0 Lab Results: Results Past 24 Hours Test 12/03/16 05:16 Range/Units White Blood Count 20.70 4.8-10.8 K/uL Red Blood Count 4.57 4.2-5.4 M/uL Hemoglobin 13.9 12.0-16.0 g/dL Hematocrit 42.4 37-47 % Mean Corpuscular Volume 92.8 80-100 fL Mean Corpuscular Hemoglobin 30.4 25-34 pg Mean Corpuscular Hemoglobin Concent 32.8 32-36 g/dl RDW Standard Deviation 42.0 36.4-46.3 fL RDW Coefficient of Variation 12.3 11.5-14.5 % Platelet Count 265 130-400 K/uL Mean Platelet Volume 10.4 7.4-10.4 fL Sodium Level 139 136-145 mmol/L Potassium Level 3.8 3.5-5.1 mmol/L Chloride Level 105 98-107 mmol/L Carbon Dioxide Level 26 21-32 mmol/L Anion Gap 8.0 3-11 mmol/L Blood Urea Nitrogen 10 7-18 mg/dl Creatinine 0.75 0.60-1.20 mg/dl Est Creatinine Clear Calc Drug Dose 119.3 ml/min Estimated GFR () 110.8 Estimated GFR (Non- 95.6 BUN/Creatinine Ratio 13.8 10-20 Random Glucose 142 70-99 mg/dl Calcium Level 8.5 8.5-10.1 mg/dl Total Bilirubin 0.7 0.2-1 mg/dl Direct Bilirubin 0.2 0-0.2 mg/dl Aspartate Amino Transf (AST/SGOT) 39 15-37 U/L Alanine Aminotransferase (ALT/SGPT) 62 12-78 U/L Alkaline Phosphatase 65 45-117 U/L Total Protein 6.8 6.4-8.2 gm/dl Albumin 3.3 3.4-5.0 gm/dl Globulin 3.5 2.5-4.0 gm/dl Albumin/Globulin Ratio 0.9 0.9-2
--- NOTE | 2016-12-04 06:58 | DISCHARGE SUMMARY ---
PRINCIPAL DIAGNOSIS: Acute cholecystitis. PROCEDURE: The patient underwent laparoscopic cholecystectomy. HISTORY OF PRESENT ILLNESS: The patient is a 46-year-old female, who presented to the Emergency Room with acute abdominal pain and chest pain and it was felt initially to be a cardiac event; however, she was evaluated and it was found to be gallbladder, which was acutely inflamed. The patient was taken to the operating room on 12/02/2016, where she underwent laparoscopic cholecystectomy. She had severe acute cholecystitis with a stone in the neck of the gallbladder. She has done quite well and is ready for discharge home today, to be followed in the surgical clinic next week.
[2016-12-04 07:00] VITALS: BP 123/83; PULSE 59; TEMP 36.8; O2SAT 97
[2016-12-04 07:15] VITALS: O2SAT 97
[2016-12-04 08:20] VITALS: PULSE 60
[2016-12-04] MEDS: PIPERACILL/TAZOBAC IV 3.375 GM in DEXTROSE 5% 100ML 100 ML IV SCH (08:44)
[2016-12-04] MEDS: DOCUSATE SODIUM/SENNA 50/8.6MG TAB PO SCH (08:45)
[2016-12-04] MEDS: MAGNESIUM HYDROXIDE SUSP 30 ML UDC PO SCH (08:45)
[2016-12-04] MEDS: ARMOUR THYROID 30 MG TAB PO SCH (08:45)
[2016-12-04 10:25] VITALS: BP 123/83; PULSE 60; TEMP 36.8; O2SAT 97
== END 2016-12-04 11:07 | disposition home or self-care (01) | DRG 419 ==
LOC: C.EDB 06:26 → C.MSN 09:37 → ENRESERV 10:21
PROVIDERS: ADMIT Surgery; ATTEND Surgery
PROC: 0FT44ZZ Resection of Gallbladder, Percutaneous Endoscopic Approach (ICD-10-PCS; principal; 2016-12-02 07:30)
DX: K80.00 Calculus of gallbladder with acute cholecystitis without obstruction (principal); K66.0 Peritoneal adhesions (postprocedural) (postinfection); K21.9 Gastro-esophageal reflux disease without esophagitis; E03.9 Hypothyroidism, unspecified; F17.210 Nicotine dependence, cigarettes, uncomplicated; Z79.2 Long term (current) use of antibiotics; Z82.49 Family history of ischemic heart disease and other diseases of the circulatory system

== ENCOUNTER → 2016-12-02 | Outpatient (CLI) | payer BC | END | disposition home or self-care (01) | LOC: C.PAPS 12-01 10:26 → C.LABSPEC 10:26 | PROVIDERS: ATTEND Urology | DX: N13.30 Unspecified hydronephrosis (principal); N39.0 Urinary tract infection, site not specified ==

== ENCOUNTER → 2016-12-14 | Outpatient (CLI) | payer BC ==
[~2016-12-14] MED LIST changes: +CIPR-255 PO; +HYDR-5688 PO; +OPTIRAY 300 IV PRN
--- NOTE | 2016-12-14 16:02 | DIAGNOSTIC IMAGING REPORT ---
IVP CLINICAL HISTORY: Hydronephrosis. Recurrent urinary tract infections. COMPARISON STUDY: IVP November 14, 2010 and renal ultrasound November 12, 2015. TECHNIQUE: A frame fixer KUB was obtained. Intravenous pyelogram was then performed following intravenous injection of 100 cc of Optiray 300. FINDINGS: No urinary calculi are identified on frame fixer KUB. Both nephrograms are symmetric. Mild left hydronephrosis is similar to IVP of November 14, 2010. There is no right hydronephrosis. 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 This was shown on prior IVP. No significant post void residual is noted. Bladder is suboptimally assessed on this exam but appears unremarkable. IMPRESSION: 1. No significant change since IVP of November 14, 2010. Stable mild left hydronephrosis with no right collecting system dilatation. 2. No change in narrowing of the bilateral ureteropelvic junctions which could be due to an intrinsic abnormality or crossing vessel. Electronically signed by: Gentry Ruiz M.D. 12/14/2016 4:01 PM Dictated Date/Time: 12/14/2016 2:57 PM
== END ==
LOC: C.RAD 12:37
PROVIDERS: ATTEND Urology
DX: N13.30 Unspecified hydronephrosis (principal); N39.0 Urinary tract infection, site not specified

== ENCOUNTER → 2016-12-17 | Outpatient (CLI) | payer BC ==
[~2016-12-17] MED LIST changes: +FUROSEMIDE INJ 10 MG/ML 2 ML VIAL IV ONE; -OPTIRAY 300 IV PRN
--- NOTE | 2016-12-17 14:20 | DIAGNOSTIC IMAGING REPORT ---
RENAL SCAN DIURETIC (MAG 3) HISTORY: 46 years-old Female HYDRONEPHROSIS follow-up study in a patient with mild left-sided hydronephrosis COMPARISON: IVP 12/14/2016 TECHNIQUE: Renal scan was obtained utilizing 8.5 mCi technetium 99 MAG3. 20 mg furosemide IV was administered. FINDINGS: Split function percentage is 55.9% on the left and 44.1% on the right. Time of half max on the left is 26.3 and on the right is 21.6. There is symmetric extraction of radiotracer into the bilateral kidneys with mild retention of tracer within the dilated left collecting system, however there is appropriate response to furosemide with only minimal residual tracer seen within the left collecting system at the conclusion of the study. These findings appear similar from comparison. IMPRESSION: Findings compatible with left-sided nonobstructive hydronephrosis with adequate response to furosemide. Again, chronic UPJ obstruction is within the differential. The above report was generated using voice recognition software. It may contain grammatical, syntax or spelling errors. Electronically signed by: Kentrell Santos M.D. 12/17/2016 2:18 PM Dictated Date/Time: 12/17/2016 2:03 PM
== END | disposition home or self-care (01) ==
LOC: C.NUCL 12:10
PROVIDERS: ATTEND Urology
DX: N13.30 Unspecified hydronephrosis (principal)